=== PATIENT | female | born 1965 | race Caucasian/White ===

== ENCOUNTER 2016-03-04 06:42 | Emergency (ER) | payer MEDICAID ==
[2016-03-04] MEDS ORDERED: LABETALOL 100 MG/20 ML VIAL ONE (07:41)
[2016-03-04] MEDS ORDERED: DIPHENHYDRAMINE 50 MG/ML VIAL ONE (08:01)
[2016-03-04] MEDS ORDERED: SODIUM CHLORIDE 0.9% 1,000 ML ONE (08:01)
[2016-03-04] MEDS ORDERED: METOCLOPRAMIDE 10 MG/2 ML VIAL ONE (08:01)
== END 2016-03-04 10:53 | disposition home or self-care (01) ==
LOC: ER 06:42
DX: I10 Essential (primary) hypertension (principal); Z79.899 Other long term (current) drug therapy; F17.210 Nicotine dependence, cigarettes, uncomplicated
CPT/HCPCS: 36415; 70450; 71010; 80053; 81001; 83735; 84703; 85025; 85610; 85730; 93005; 96361; 96374; 96375